=== PATIENT | male | born 1940 ===

== ENCOUNTER 2022-08-20 10:54 | Inpatient (IN) ==
[2022-08-20 11:26] LABS: Basophils % 0.4 % (0.0-0.8); Eosinophils # 0.1 10*3/uL (0.0-0.87); Eosinophils % 2.2 % (0.00-10.9); Hematocrit 33.2 VOL% (42.0-52.0); Hemoglobin 11.1 GM/DL (14.0-18.0); Immature Granulocytes % 0.2 %; Immature Granulocytes Absolute 0.01 #; Lymphocytes % 22.4 % (21.2-54.2); Mean Corpuscular HGB Conc 33.4 GM/DL (32-36); Mean Corpuscular Volume 94.9 FL (87-102); Mean Platelet Volume 11.3 FL (9.6-12.0); Monocytes # 0.4 10*3/uL (0.11-0.8); Monocytes % 9.3 % (1.7-12.7); Neutrophils % 65.5 % (38.7-73.9); Platelet Count 183 T/CUMM (130-400); Red Cell Distribution Width 13.4 % (9.3-17.3); White Blood Count 4.5 T/CUMM (4-12)
[2022-08-20 11:45] LABS: Albumin 3.2 G/DL (3.4-5.0); Bilirubin,Total 0.8 MG/DL (0.20-1.00); Osmolality,Calculated 303.3 MOS/KG (273-304); Total Protein 6.8 G/DL (6.4-8.2)
[2022-08-20 11:48] LABS: Calcium 5.2 MG/DL (8.5-10.1)
[2022-08-20] MEDS ORDERED: CALCIUM CHLORIDE 1,000 MG/10 ML SYRINGE IV STA (11:50)
[2022-08-20] MEDS ORDERED: SODIUM CHLORIDE 0.9% 1,000 ML IV STA (11:51)
[2022-08-20] MEDS ORDERED: MAGNESIUM SULF RIDER 2 GM/50 ML PREMIX IV ONE (12:43)
[2022-08-20 13:01] LABS: Parathyroid Hormone Intact 201.8 PG/ML (18.4-80.1)
[2022-08-20] MEDS ORDERED: GLUCAGON 1 MG VIAL IM PRN (13:03)
[2022-08-20] MEDS ORDERED: ONDANSETRON 4 MG/2 ML VIAL IV PRN (13:03)
[2022-08-20] MEDS ORDERED: hydrALAZINE 20 MG/1 ML VIAL IV PRN (13:03)
[2022-08-20] MEDS ORDERED: ACETAMINOPHEN 325 MG TABLET PO PRN (13:03)
[2022-08-20] MEDS ORDERED: DEXTROSE 10% 250 ML BAG IV PRN (13:09)
[2022-08-20 14:01] LABS: Free T4 (Free Thyroxine) 1.51 NG/DL (0.76-1.46)
[2022-08-20] MEDS: amLODIPine 5 MG TABLET PO SCH (14:38)
[2022-08-20] MEDS: SODIUM CHLORIDE 0.9% 1,000 ML IV SCH (14:38)
[2022-08-20] MEDS: CALCIUM ACETATE 667 MG CAPSULE PO SCH (16:26)
[2022-08-20] MEDS: INSULIN LISPRO 100 UNIT/ML SUBCUT SCH ×2 (16:45→21:01)
[2022-08-20] MEDS ORDERED: CALCIUM CARBONATE CHEW 500 MG TABLET PO SCH (21:00)
[2022-08-20] MEDS ORDERED: ERGOCALCIFEROL 50,000 UNIT CAPSULE PO SCH (21:00)
[2022-08-20] MEDS: HEPARIN 5,000 UNIT/1 ML VIAL SUBCUT SCH (21:01)
[2022-08-21 06:23] LABS: Basophils % 0.2 % (0.0-0.8); Eosinophils # 0.1 10*3/uL (0.0-0.87); Eosinophils % 1.6 % (0.00-10.9); Hematocrit 32.9 VOL% (42.0-52.0); Hemoglobin 10.4 GM/DL (14.0-18.0); Immature Granulocytes % 0.2 %; Immature Granulocytes Absolute 0.01 #; Lymphocytes # 1.5 10*3/uL (1.4-4.0); Lymphocytes % 29.1 % (21.2-54.2); Mean Corpuscular HGB Conc 31.6 GM/DL (32-36); Mean Corpuscular Volume 95.9 FL (87-102); Mean Platelet Volume 11.6 FL (9.6-12.0); Monocytes # 0.5 10*3/uL (0.11-0.8); Monocytes % 9.6 % (1.7-12.7); Neutrophils % 59.3 % (38.7-73.9); Platelet Count 188 T/CUMM (130-400); Red Blood Count 3.43 MC/CUMM (3.8-5.5); Red Cell Distribution Width 13.5 % (9.3-17.3); White Blood Count 5.1 T/CUMM (4-12)
[2022-08-21 06:54] LABS: Osmolality,Calculated 299.1 MOS/KG (273-304); Potassium 4.1 MMOL/L (3.5-5.1)
[2022-08-21 06:55] LABS: Calcium 5.3 MG/DL (8.5-10.1)
[2022-08-21] MEDS: INSULIN LISPRO 100 UNIT/ML SUBCUT SCH ×4 (09:27→21:59)
[2022-08-21] MEDS: amLODIPine 5 MG TABLET PO SCH (10:03)
[2022-08-21] MEDS: HEPARIN 5,000 UNIT/1 ML VIAL SUBCUT SCH ×2 (10:03→21:59)
[2022-08-21] MEDS: CALCIUM ACETATE 667 MG CAPSULE PO SCH ×3 (10:03→17:04)
[2022-08-21] MEDS: PANTOPRAZOLE 40 MG TABLET PO SCH (10:03)
[2022-08-21] MEDS: SODIUM CHLORIDE 0.9% 1,000 ML IV SCH ×3 (13:42→19:30)
[2022-08-21] MEDS ORDERED: CALCIUM GLUCONATE RIDER 1,000 MG/50 ML PREMIX IV ONE (15:00)
[2022-08-22] MEDS: SODIUM CHLORIDE 0.9% 1,000 ML IV SCH ×3 (00:50→14:35)
[2022-08-22 05:26] LABS: Basophils % 0.5 % (0.0-0.8); Eosinophils # 0.2 10*3/uL (0.0-0.87); Eosinophils % 3.6 % (0.00-10.9); Hematocrit 28.5 VOL% (42.0-52.0); Hemoglobin 9.4 GM/DL (14.0-18.0); Immature Granulocytes % 0.2 %; Immature Granulocytes Absolute 0.01 #; Lymphocytes # 1.9 10*3/uL (1.4-4.0); Lymphocytes % 42.4 % (21.2-54.2); Mean Corpuscular Volume 95.6 FL (87-102); Mean Platelet Volume 11.4 FL (9.6-12.0); Monocytes # 0.4 10*3/uL (0.11-0.8); Monocytes % 7.9 % (1.7-12.7); Neutrophils % 45.4 % (38.7-73.9); Platelet Count 157 T/CUMM (130-400); Red Blood Count 2.98 MC/CUMM (3.8-5.5); Red Cell Distribution Width 13.2 % (9.3-17.3); White Blood Count 4.4 T/CUMM (4-12)
[2022-08-22 05:51] LABS: Osmolality,Calculated 299.1 MOS/KG (273-304)
[2022-08-22 05:52] LABS: Calcium 5.8 MG/DL (8.5-10.1)
[2022-08-22] MEDS ORDERED: CALCIUM GLUCONATE RIDER 2,000 MG/100 ML PREMIX IV ONE (09:00)
[2022-08-22] MEDS: CALCIUM ACETATE 667 MG CAPSULE PO SCH ×3 (10:12→17:35)
[2022-08-22] MEDS: amLODIPine 5 MG TABLET PO SCH (10:12)
[2022-08-22] MEDS: PANTOPRAZOLE 40 MG TABLET PO SCH (10:12)
[2022-08-22] MEDS: HEPARIN 5,000 UNIT/1 ML VIAL SUBCUT SCH ×2 (10:12→21:57)
[2022-08-22] MEDS: INSULIN LISPRO 100 UNIT/ML SUBCUT SCH ×4 (10:13→21:57)
[2022-08-22] MEDS ORDERED: ALBUTEROL/IPRATROPIUM 3 ML NEB RESP TX SCH (19:00)
[2022-08-23 04:47] LABS: Basophils % 0.4 % (0.0-0.8); Eosinophils # 0.2 10*3/uL (0.0-0.87); Eosinophils % 3.5 % (0.00-10.9); Hematocrit 29.4 VOL% (42.0-52.0); Hemoglobin 9.4 GM/DL (14.0-18.0); Immature Granulocytes % 0.2 %; Immature Granulocytes Absolute 0.01 #; Lymphocytes # 1.8 10*3/uL (1.4-4.0); Lymphocytes % 38.8 % (21.2-54.2); Mean Corpuscular Volume 95.8 FL (87-102); Mean Platelet Volume 12.3 FL (9.6-12.0); Monocytes # 0.4 10*3/uL (0.11-0.8); Neutrophils % 48.1 % (38.7-73.9); Platelet Count 164 T/CUMM (130-400); Red Blood Count 3.07 MC/CUMM (3.8-5.5); Red Cell Distribution Width 13.2 % (9.3-17.3); White Blood Count 4.5 T/CUMM (4-12)
[2022-08-23 05:06] LABS: Calcium 6.5 MG/DL (8.5-10.1); Osmolality,Calculated 299.3 MOS/KG (273-304); Potassium 4.3 MMOL/L (3.5-5.1)
[2022-08-23] MEDS: INSULIN LISPRO 100 UNIT/ML SUBCUT SCH ×4 (08:49→21:24)
[2022-08-23] MEDS: SODIUM CHLORIDE 0.9% 1,000 ML IV SCH ×3 (08:49→20:45)
[2022-08-23] MEDS: CALCIUM ACETATE 667 MG CAPSULE PO SCH ×3 (10:19→17:05)
[2022-08-23] MEDS: PANTOPRAZOLE 40 MG TABLET PO SCH (10:19)
[2022-08-23] MEDS: amLODIPine 5 MG TABLET PO SCH (10:19)
[2022-08-23] MEDS: HEPARIN 5,000 UNIT/1 ML VIAL SUBCUT SCH ×2 (10:19→21:24)
[2022-08-23 20:05] LABS: Bacteria,Urine Occasional /HPF (Few); Glucose,Urine (UA) 100 mg/dL (Negative); Ketones,Urine Negative (Negative); Mucus,Urine Occasional /LPF (Occasional); Nitrite,Urine Negative (Negative); Protein,Urine >=300 mg/dL (Negative); RBC,Urine 1 /HPF (0-4); Squamous Epithelial Cell,Urine Occasional /HPF (0-10); Urine Appearance Clear (Clear); Urine Color Yellow (Yellow); Urine Specific Gravity 1.015 (1.001-1.035)
[2022-08-23 20:06] LABS: Bilirubin,Urine Negative (Negative); Blood, Urine Small mg/dL (Negative); Urine Urobilinogen 0.2 eU/dL (<2.0)
[2022-08-24 06:42] LABS: Basophils % 0.5 % (0.0-0.8); Eosinophils # 0.2 10*3/uL (0.0-0.87); Eosinophils % 5.1 % (0.00-10.9); Hematocrit 29.7 VOL% (42.0-52.0); Hemoglobin 9.9 GM/DL (14.0-18.0); Immature Granulocytes % 0.5 %; Immature Granulocytes Absolute 0.02 #; Lymphocytes # 1.5 10*3/uL (1.4-4.0); Lymphocytes % 35.4 % (21.2-54.2); Mean Corpuscular HGB Conc 33.3 GM/DL (32-36); Mean Corpuscular Volume 94.9 FL (87-102); Mean Platelet Volume 12.3 FL (9.6-12.0); Monocytes # 0.4 10*3/uL (0.11-0.8); Monocytes % 8.7 % (1.7-12.7); Neutrophils % 49.8 % (38.7-73.9); Platelet Count 157 T/CUMM (130-400); Red Blood Count 3.13 MC/CUMM (3.8-5.5); Red Cell Distribution Width 13.1 % (9.3-17.3); White Blood Count 4.1 T/CUMM (4-12)
[2022-08-24 07:03] LABS: Calcium 6.7 MG/DL (8.5-10.1); Potassium 4.4 MMOL/L (3.5-5.1)
[2022-08-24] MEDS: INSULIN LISPRO 100 UNIT/ML SUBCUT SCH ×4 (07:52→20:30)
[2022-08-24] MEDS: SODIUM CHLORIDE 0.9% 1,000 ML IV SCH (08:56)
[2022-08-24] MEDS: LACTATED RINGERS 1,000 ML IV SCH ×2 (08:57→22:05)
[2022-08-24] MEDS: PANTOPRAZOLE 40 MG TABLET PO SCH (08:57)
[2022-08-24] MEDS: amLODIPine 10 MG TABLET PO SCH (08:57)
[2022-08-24] MEDS: CALCIUM ACETATE 667 MG CAPSULE PO SCH ×3 (08:57→16:04)
[2022-08-24] MEDS ORDERED: MAGNESIUM SULF RIDER 4 GM/100 ML PREMIX IV ONE (09:00)
[2022-08-24] MEDS: HEPARIN 5,000 UNIT/1 ML VIAL SUBCUT SCH ×2 (09:03→20:30)
[2022-08-24] MEDS: CHOLECALCIFEROL 5,000 UNIT TABLET PO SCH ×2 (11:07→20:30)
[2022-08-25] MEDS ORDERED: LEVOTHYROXINE 75 MCG TABLET PO SCH (06:30)
[2022-08-25] MEDS: INSULIN LISPRO 100 UNIT/ML SUBCUT SCH ×4 (08:00→20:45)
[2022-08-25 08:18] LABS: Basophils % 0.3 % (0.0-0.8); Eosinophils # 0.2 10*3/uL (0.0-0.87); Eosinophils % 4.6 % (0.00-10.9); Hematocrit 29.6 VOL% (42.0-52.0); Hemoglobin 9.9 GM/DL (14.0-18.0); Immature Granulocytes % 0.5 %; Immature Granulocytes Absolute 0.02 #; Lymphocytes # 1.6 10*3/uL (1.4-4.0); Lymphocytes % 40.8 % (21.2-54.2); Mean Corpuscular HGB Conc 33.4 GM/DL (32-36); Mean Corpuscular Volume 93.7 FL (87-102); Mean Platelet Volume 11.3 FL (9.6-12.0); Monocytes # 0.4 10*3/uL (0.11-0.8); Monocytes % 9.2 % (1.7-12.7); Neutrophils % 44.6 % (38.7-73.9); Platelet Count 161 T/CUMM (130-400); Red Blood Count 3.16 MC/CUMM (3.8-5.5); Red Cell Distribution Width 13.2 % (9.3-17.3); White Blood Count 3.9 T/CUMM (4-12)
[2022-08-25 08:36] LABS: Calcium 7.5 MG/DL (8.5-10.1); Osmolality,Calculated 292.3 MOS/KG (273-304); Potassium 4.4 MMOL/L (3.5-5.1)
[2022-08-25] MEDS: PANTOPRAZOLE 40 MG TABLET PO SCH (09:00)
[2022-08-25] MEDS: CALCIUM ACETATE 667 MG CAPSULE PO SCH ×2 (09:00→12:04)
[2022-08-25] MEDS: amLODIPine 10 MG TABLET PO SCH (09:00)
[2022-08-25] MEDS: CHOLECALCIFEROL 5,000 UNIT TABLET PO SCH (09:00)
[2022-08-25] MEDS: HEPARIN 5,000 UNIT/1 ML VIAL SUBCUT SCH ×2 (09:01→20:45)
[2022-08-25] MEDS: LACTATED RINGERS 1,000 ML IV SCH (12:04)
[2022-08-25] MEDS: hydrALAZINE 10 MG TABLET PO SCH ×2 (12:04→20:45)
[2022-08-26] MEDS: LACTATED RINGERS 1,000 ML IV SCH (01:45)
[2022-08-26 06:15] LABS: Basophils % 0.4 % (0.0-0.8); Eosinophils # 0.2 10*3/uL (0.0-0.87); Eosinophils % 4.3 % (0.00-10.9); Hematocrit 29.6 VOL% (42.0-52.0); Hemoglobin 9.8 GM/DL (14.0-18.0); Immature Granulocytes % 0.2 %; Immature Granulocytes Absolute 0.01 #; Lymphocytes # 2.1 10*3/uL (1.4-4.0); Lymphocytes % 41.6 % (21.2-54.2); Mean Corpuscular HGB Conc 33.1 GM/DL (32-36); Mean Platelet Volume 12.1 FL (9.6-12.0); Monocytes # 0.4 10*3/uL (0.11-0.8); Monocytes % 8.5 % (1.7-12.7); Platelet Count 157 T/CUMM (130-400); Red Blood Count 3.15 MC/CUMM (3.8-5.5); Red Cell Distribution Width 13.5 % (9.3-17.3); White Blood Count 4.9 T/CUMM (4-12)
[2022-08-26 06:39] LABS: Calcium 7.9 MG/DL (8.5-10.1); Osmolality,Calculated 290.5 MOS/KG (273-304); Potassium 4.3 MMOL/L (3.5-5.1)
[2022-08-26] MEDS ORDERED: CALCIUM ACETATE 667 MG CAPSULE PO SCH (08:00)
[2022-08-26] MEDS: INSULIN LISPRO 100 UNIT/ML SUBCUT SCH ×2 (08:01→11:45)
[2022-08-26] MEDS: amLODIPine 10 MG TABLET PO SCH (08:46)
[2022-08-26] MEDS: PANTOPRAZOLE 40 MG TABLET PO SCH (08:46)
[2022-08-26] MEDS: HEPARIN 5,000 UNIT/1 ML VIAL SUBCUT SCH (08:48)
[2022-08-26] MEDS: hydrALAZINE 10 MG TABLET PO SCH (08:54)
[2022-08-26 12:43] VITALS: BP 175/85
== END 2022-08-26 14:00 | disposition home health service (06) | DRG 682 ==
LOC: N.ED 10:54 → SUATTDRO 13:03 → N.EDINP 13:03 → N.2E 14:39
PROVIDERS: ADMIT Internal Medicine; ATTEND Hospitalist